=== PATIENT | female | born 1960 | race African-American/Black ===

== ENCOUNTER 2023-11-11 15:49 | Emergency (ER) | payer MEDICARE ==
[~2023-11-11] VITALS: Ht 172.7 cm; Wt 101.0 kg
[2023-11-11 16:00] VITALS: O2SAT 97
[2023-11-11] MEDS ORDERED: HYDROCODONE/ACETAMINOPHEN 5/325MG TABLET PO ONE (17:30)
[2023-11-11] MEDS: LIDOCAINE HCL/PF 1% 10 MG/ML 5ML VIAL INFIL ONE (17:30)
[2023-11-11] MEDS ORDERED: MUPI1OIN4 TP (18:23)
[2023-11-11] MEDS ORDERED: IBUP-2029 MT (18:23)
[2023-11-11] MEDS ORDERED: CEPH500T MT (18:23)
[2023-11-11] MEDS ORDERED: SULF1TAB48 MT (18:23)
[2023-11-11 19:30] VITALS: BP 155/77; PULSE 90; RESP 20; TEMP 98.2
[2023-11-11] MEDS: TETANUS, DIPHTHERIA, PERTUSSIS VAC/PF 0.5ML (>10YR OLD) IM ONE (19:35)
== END 2023-11-11 19:30 | disposition home or self-care (01) ==
LOC: ER 15:49
DX: L02.211 Cutaneous abscess of abdominal wall (principal); I10 Essential (primary) hypertension; Z86.73 Personal history of transient ischemic attack (TIA), and cerebral infarction without residual deficits
CPT/HCPCS: 90471; 90715; 99283